=== PATIENT | male | born 1995 | race Caucasian/White ===

== ENCOUNTER 2018-02-05 23:18 | Emergency (ER) | payer SELFPAY ==
[~2018-02-05] VITALS: Ht 157.5 cm; Wt 68.2 kg
[2018-02-06 01:02] VITALS: BP 142/91
== END 2018-02-06 01:04 | disposition home or self-care (01) ==
LOC: EMS 23:19
DX: M54.2 Cervicalgia (principal); F12.10 Cannabis abuse, uncomplicated; F15.10 Other stimulant abuse, uncomplicated; L90.5 Scar conditions and fibrosis of skin
CPT/HCPCS: 99281